=== PATIENT | male | born 1985 | race African-American/Black ===

== ENCOUNTER 2021-02-02 18:31 | Emergency (ER) | payer SELFPAY ==
[~2021-02-02] VITALS: Ht 170.2 cm; Wt 134.3 kg
[2021-02-02] MEDS ORDERED: AZITHROMYCIN250 MG PO (20:09)
[2021-02-02] MEDS ORDERED: VENTOLIN HFA18 GM INH (20:09)
[2021-02-02] MEDS ORDERED: PREDNISONE20 MG PO (20:09)
[2021-02-02 20:25] VITALS: BP 169/105
== END 2021-02-02 20:25 | disposition home or self-care (01) ==
LOC: FSED 18:45
DX: J02.9 Acute pharyngitis, unspecified (principal)
CPT/HCPCS: 83518; 87400; 99283